=== PATIENT | female | born 1940 | race Two or more races ===

== ENCOUNTER 2019-04-06 11:27 | Outpatient (CLI) | payer OTHER | END 2019-04-06 11:37 | disposition home or self-care (01) | LOC: LAB 11:27 | DX: E03.8 Other specified hypothyroidism (principal); E06.3 Autoimmune thyroiditis; D51.1 Vitamin B12 deficiency anemia due to selective vitamin B12 malabsorption with proteinuria; D55.0 Anemia due to glucose-6-phosphate dehydrogenase [G6PD] deficiency; D51.8 Other vitamin B12 deficiency anemias; Z80.3 Family history of malignant neoplasm of breast; Z80.1 Family history of malignant neoplasm of trachea, bronchus and lung; D51.3 Other dietary vitamin B12 deficiency anemia; I10 Essential (primary) hypertension; D51.0 Vitamin B12 deficiency anemia due to intrinsic factor deficiency; D50.8 Other iron deficiency anemias ==